=== PATIENT | male | born 1975 | race Caucasian/White ===

== ENCOUNTER → 2021-06-19 | Outpatient (CLI) | payer BC | LOC: M LABSMTC 12:44 | PROVIDERS: ATTEND Anesthesiology | DX: Z01.812 Encounter for preprocedural laboratory examination (principal); Z20.822 Contact with and (suspected) exposure to COVID-19 ==

== ENCOUNTER 2021-06-23 07:08 | Day surgery (SDC) | payer BC ==
[~2021-06-23] VITALS: Ht 160 cm; Wt 57.2 kg
[~2021-06-23 07:08] MED LIST: NS 1,000 ML IV ONE
[2021-06-23] MEDS ORDERED: LIDOCAINE 2% 100MG/5ML SDV (FOR ANES.) As Ordered ONE (07:43)
[2021-06-23] MEDS ORDERED: propofoL 200 MG/20 ML VIAL As Ordered ONE ×2 (07:43→08:04)
[2021-06-23 08:27] VITALS: BP 120/71
== END 2021-06-23 08:39 | disposition home or self-care (01) ==
LOC: M OPP 07:08
PROVIDERS: ATTEND Internal Medicine Gastroenterology
DX: Z12.11 Encounter for screening for malignant neoplasm of colon (principal); K55.9 Vascular disorder of intestine, unspecified; K64.8 Other hemorrhoids